=== PATIENT | male | born 1970 | race African-American/Black ===

== ENCOUNTER 2019-04-05 06:59 | Inpatient (IN) ==
[2019-04-05] MEDS ORDERED: LIDOCAINE 1% 50 ML VIAL ONE (07:21)
[2019-04-05] MEDS ORDERED: DIAZEPAM 5 MG TABLET PO ONE (07:28)
[2019-04-05] MEDS ORDERED: FAMOTIDINE 20 MG TABLET PO ONE (07:29)
[2019-04-05 07:41] LABS: Basophils % 0.2 % (0.0-0.8); Eosinophils # 0.3 10*3/uL (0.0-0.87); Eosinophils % 1.8 % (0.00-10.9); Hematocrit 24.5 VOL% (42.0-52.0); Hemoglobin 8.3 GM/DL (14.0-18.0); Immature Granulocytes % 0.6 %; Lymphocytes # 1.5 10*3/uL (1.4-4.0); Mean Corpuscular HGB Conc 33.9 GM/DL (32-36); Mean Corpuscular Volume 87.5 FL (87-102); Mean Platelet Volume 9.7 FL (9.6-12.0); Monocytes % 8.2 % (1.7-12.7); Neutrophils % 80.2 % (38.7-73.9); Platelet Count 267 T/CUMM (130-400); Red Cell Distribution Width 12.9 % (9.3-17.3); White Blood Count 16.8 T/CUMM (4-12)
[2019-04-05 07:53] LABS: Calcium 8.8 MG/DL (8.5-10.1); Osmolality,Calculated 284.1 MOS/KG (273-304)
[2019-04-05] MEDS ORDERED: DEXAMETHASONE 4 MG/1 ML VIAL ONE (07:53)
[2019-04-05] MEDS ORDERED: EPINEPHrine 1 MG/ML VIAL ONE (07:53)
[2019-04-05] MEDS ORDERED: BUPIVACAINE 0.5% 50 ML VIAL ONE (07:53)
[2019-04-05] MEDS ORDERED: LACTATED RINGERS 1,000 ML IV SCH (08:30)
[2019-04-05] MEDS ORDERED: SODIUM CHLORIDE 0.9% 1,000 ML IV PRN ×2 (09:15→10:08)
[2019-04-05] MEDS: LACTATED RINGERS 1,000 ML IV SCH ×3 (09:56→21:36)
[2019-04-05] MEDS ORDERED: BISACODYL 5 MG TABLET PO PRN (10:08)
[2019-04-05] MEDS ORDERED: HYDROmorphone 2 MG/1 ML VIAL IV PRN (10:08)
[2019-04-05] MEDS ORDERED: ONDANSETRON 4 MG/2 ML VIAL IV PRN ×2 (10:08→11:09)
[2019-04-05] MEDS ORDERED: ALBUTEROL/IPRATROPIUM 3 ML NEB RESP TX PRN (10:08)
[2019-04-05] MEDS ORDERED: ACETAMINOPHEN 325 MG TABLET PO PRN (10:08)
[2019-04-05] MEDS ORDERED: BACLOFEN 10 MG TABLET PO PRN (10:13)
[2019-04-05] MEDS ORDERED: traMADol 50 MG TABLET PO PRN (10:13)
[2019-04-05] MEDS ORDERED: PROPOFOL 200 MG/20 ML VIAL IV ONE (10:20)
[2019-04-05] MEDS ORDERED: MIDAZOLAM 2 MG/2 ML VIAL ONE (10:20)
[2019-04-05] MEDS ORDERED: fentaNYL 100 MCG/2 ML VIAL ONE (10:20)
[2019-04-05] MEDS ORDERED: PHENYLEPHRINE 1 MG/10 ML SYRINGE IV ONE (10:21)
[2019-04-05] MEDS ORDERED: ONDANSETRON 4 MG/2 ML VIAL ONE ×2 (10:21→11:00)
[2019-04-05] MEDS ORDERED: LIDOCAINE 2% 5 ML VIAL ONE (10:21)
[2019-04-05] MEDS ORDERED: SEVOFLURANE 1 UNIT/15 MINUTE INH ONE (10:21)
[2019-04-05] MEDS ORDERED: MEPERIDINE 25 MG/1 ML VIAL ONE (10:59)
[2019-04-05] MEDS ORDERED: MEPERIDINE 25 MG/1 ML VIAL IV PRN (11:09)
[2019-04-05] MEDS ORDERED: PROMETHAZINE INJ 25 MG in SODIUM CHLORIDE 0.9% 50 ML IV PRN (11:09)
[2019-04-05] MEDS ORDERED: diphenhydrAMINE 50 MG/1 ML VIAL IV PRN (11:09)
[2019-04-05] MEDS: HYDROmorphone 2 MG/1 ML VIAL IV PRN ×2 (13:04→18:47)
[2019-04-05] MEDS: ceFAZolin 2,000 MG in PREMIX 1 EACH IV SCH (15:41)
[2019-04-05] MEDS: carvediloL 6.25 MG TABLET PO SCH (18:21)
[2019-04-05] MEDS: levETIRAcetam 500 MG TABLET PO SCH (21:37)
[2019-04-05] MEDS: traZODone 50 MG TABLET PO SCH (21:37)
[2019-04-05] MEDS: INSULIN REGULAR 100 UNIT/ML SUBCUT SCH (21:37)
[2019-04-06] MEDS: ceFAZolin 2,000 MG in PREMIX 1 EACH IV SCH (00:45)
[2019-04-06 06:18] LABS: Basophils % 0.2 % (0.0-0.8); Eosinophils % 0.1 % (0.00-10.9); Hematocrit 24.7 VOL% (42.0-52.0); Hemoglobin 8.3 GM/DL (14.0-18.0); Immature Granulocytes % 0.8 %; Immature Granulocytes Absolute 0.11 #; Lymphocytes # 1.3 10*3/uL (1.4-4.0); Mean Corpuscular HGB Conc 33.6 GM/DL (32-36); Mean Platelet Volume 9.7 FL (9.6-12.0); Monocytes % 8.6 % (1.7-12.7); Neutrophils % 81.3 % (38.7-73.9); Platelet Count 254 T/CUMM (130-400); Red Blood Count 2.84 MC/CUMM (3.8-5.5); Red Cell Distribution Width 13.2 % (9.3-17.3); White Blood Count 14.6 T/CUMM (4-12)
[2019-04-06 06:40] LABS: Calcium 7.5 MG/DL (8.5-10.1); Osmolality,Calculated 287.3 MOS/KG (273-304)
[2019-04-06] MEDS: amLODIPine 10 MG TABLET PO SCH (08:57)
[2019-04-06] MEDS: levETIRAcetam 500 MG TABLET PO SCH ×2 (08:57→20:57)
[2019-04-06] MEDS: POLYETHYLENE GLYCOL POWDER 17 GM PACK PO SCH (08:57)
[2019-04-06] MEDS: LACTULOSE 20 GM/30 ML UDCUP PO SCH (08:57)
[2019-04-06] MEDS: INSULIN REGULAR 100 UNIT/ML SUBCUT SCH ×5 (08:58→20:58)
[2019-04-06] MEDS: DOCUSATE SODIUM 100 MG CAPSULE PO SCH (08:58)
[2019-04-06] MEDS: carvediloL 6.25 MG TABLET PO SCH ×2 (08:58→17:18)
[2019-04-06] MEDS: PANTOPRAZOLE 40 MG TABLET PO SCH (08:58)
[2019-04-06] MEDS: ASPIRIN EC 81 MG TABLET PO SCH (08:58)
[2019-04-06] MEDS: OXYBUTYNIN XL 5 MG TABLET PO SCH (08:58)
[2019-04-06] MEDS ORDERED: TUBERCULIN SKIN TEST 0.1 ML SYRINGE INTRADERM ONE (09:40)
[2019-04-06] MEDS: LACTATED RINGERS 1,000 ML IV SCH ×2 (10:27→18:32)
[2019-04-06] MEDS: DESITIN 4OZ/NYSTATIN 15 GRAM MIXTURE PASTE TOP SCH ×2 (15:00→20:58)
[2019-04-06] MEDS: traZODone 50 MG TABLET PO SCH (20:57)
[2019-04-07] MEDS: LACTATED RINGERS 1,000 ML IV SCH ×4 (02:32→20:14)
[2019-04-07] MEDS: INSULIN REGULAR 100 UNIT/ML SUBCUT SCH ×4 (07:47→20:05)
[2019-04-07] MEDS: DOCUSATE SODIUM 100 MG CAPSULE PO SCH (09:15)
[2019-04-07] MEDS: amLODIPine 10 MG TABLET PO SCH (09:15)
[2019-04-07] MEDS: carvediloL 6.25 MG TABLET PO SCH ×2 (09:16→16:05)
[2019-04-07] MEDS: LACTULOSE 20 GM/30 ML UDCUP PO SCH (09:16)
[2019-04-07] MEDS: POLYETHYLENE GLYCOL POWDER 17 GM PACK PO SCH (09:16)
[2019-04-07] MEDS: levETIRAcetam 500 MG TABLET PO SCH ×2 (09:16→20:06)
[2019-04-07] MEDS: PANTOPRAZOLE 40 MG TABLET PO SCH (09:16)
[2019-04-07] MEDS: OXYBUTYNIN XL 5 MG TABLET PO SCH (09:16)
[2019-04-07] MEDS: ASPIRIN EC 81 MG TABLET PO SCH (09:16)
[2019-04-07] MEDS: DESITIN 4OZ/NYSTATIN 15 GRAM MIXTURE PASTE TOP SCH ×2 (10:30→20:07)
[2019-04-07] MEDS: oxyCODONE/ACETAMINOPHEN 5-325 MG TABLET PO PRN ×4 (10:42→23:53)
[2019-04-07] MEDS: GABAPENTIN 100 MG CAPSULE PO SCH (20:05)
[2019-04-07] MEDS: traZODone 50 MG TABLET PO SCH (20:06)
[2019-04-08] MEDS: LACTATED RINGERS 1,000 ML IV SCH ×3 (03:24→11:14)
[2019-04-08] MEDS: oxyCODONE/ACETAMINOPHEN 5-325 MG TABLET PO PRN ×2 (03:54→08:52)
[2019-04-08 05:10] LABS: Basophils # 0.1 10*3/uL (0.0-0.2); Basophils % 0.4 % (0.0-0.8); Eosinophils # 0.5 10*3/uL (0.0-0.87); Eosinophils % 4.5 % (0.00-10.9); Hematocrit 24.7 VOL% (42.0-52.0); Hemoglobin 8.2 GM/DL (14.0-18.0); Immature Granulocytes % 0.9 %; Lymphocytes # 2.2 10*3/uL (1.4-4.0); Lymphocytes % 19.4 % (21.2-54.2); Mean Corpuscular HGB Conc 33.2 GM/DL (32-36); Mean Corpuscular Volume 86.7 FL (87-102); Mean Platelet Volume 9.3 FL (9.6-12.0); Monocytes % 9.3 % (1.7-12.7); Neutrophils % 65.5 % (38.7-73.9); Platelet Count 327 T/CUMM (130-400); Red Blood Count 2.85 MC/CUMM (3.8-5.5); Red Cell Distribution Width 13.5 % (9.3-17.3); White Blood Count 11.1 T/CUMM (4-12)
[2019-04-08 05:37] LABS: Calcium 7.8 MG/DL (8.5-10.1); Osmolality,Calculated 284.1 MOS/KG (273-304)
[2019-04-08] MEDS: carvediloL 6.25 MG TABLET PO SCH (08:51)
[2019-04-08] MEDS: amLODIPine 10 MG TABLET PO SCH (08:51)
[2019-04-08] MEDS: LACTULOSE 20 GM/30 ML UDCUP PO SCH (08:51)
[2019-04-08] MEDS: OXYBUTYNIN XL 5 MG TABLET PO SCH (08:52)
[2019-04-08] MEDS: DOCUSATE SODIUM 100 MG CAPSULE PO SCH (08:52)
[2019-04-08] MEDS: ASPIRIN EC 81 MG TABLET PO SCH (08:52)
[2019-04-08] MEDS: PANTOPRAZOLE 40 MG TABLET PO SCH (08:52)
[2019-04-08] MEDS: levETIRAcetam 500 MG TABLET PO SCH (08:52)
[2019-04-08] MEDS: GABAPENTIN 100 MG CAPSULE PO SCH (08:52)
[2019-04-08] MEDS: POLYETHYLENE GLYCOL POWDER 17 GM PACK PO SCH (08:52)
[2019-04-08] MEDS: INSULIN REGULAR 100 UNIT/ML SUBCUT SCH ×2 (08:55→11:39)
[2019-04-08] MEDS: DESITIN 4OZ/NYSTATIN 15 GRAM MIXTURE PASTE TOP SCH (10:00)
[2019-04-08 11:43] VITALS: BP 120/50
== END 2019-04-08 12:17 | DRG 239 ==
LOC: N.3E 06:59
PROVIDERS: ADMIT Surgery; ATTEND Surgery